=== PATIENT | female | born 1990 | race Caucasian/White ===

== ENCOUNTER → 2018-07-27 | Outpatient (CLI) | payer BC, MEDICAID ==
[~2018-07-27] MED LIST: ACHD5005 PO; DCS100C PO; IBP600T1 PO; PREN-115 PO
--- NOTE | 2018-07-27 10:24 | Diagnostic Imaging Report ---
PROCEDURE: US Hepatic (Liver). TECHNIQUE: Multiple Real-time grayscale images were obtained over the right upper quadrant in various projections. INDICATION: The liver is at the upper limits of normal in size at 18 cm. No discrete liver mass is identified. The portal vein is patent and shows normal direction of flow. The gallbladder is without stones or sludge. No wall thickening or biliary ductal dilatation is seen. The pancreas is obscured by bowel gas. The right kidney is unremarkable. There is no ascites. IMPRESSION: Upper limits of normal size liver without evidence of discrete mass or biliary ductal dilatation. There is no evidence of cholelithiasis or acute cholecystitis. Dictated by: Dictated on workstation # [id number]
== END ==
LOC: RAD 08:41
PROVIDERS: ATTEND Family Medicine
DX: R79.89 Other specified abnormal findings of blood chemistry (principal)
CPT/HCPCS: 76705

== ENCOUNTER → 2018-09-25 | Outpatient (CLI) | payer MEDICAID ==
--- NOTE | 2018-09-25 09:52 | Diagnostic Imaging Report ---
INDICATION: Elevated liver function test. Ultrasound of the liver and right upper quadrant was performed in routine fashion and compared to 07/27/2018. FINDINGS: The liver shows normal echogenicity with no focal lesions. Portal vein is patent with flow in the normal direction towards the liver. Gallbladder appears unremarkable with no stones or wall thickening. Common duct measured 3 mm. Pancreas is unremarkable to the extent seen. The right kidney was normal measuring 11.6 x 3.9 x 4.1 cm. There is no ascites. There is no free fluid. IMPRESSION: Negative ultrasound of right upper quadrant. No acute change compared to the prior study. Dictated by: Dictated on workstation # [id number]
== END ==
LOC: RAD 08:34
PROVIDERS: ATTEND Family Medicine
DX: R79.89 Other specified abnormal findings of blood chemistry (principal)
CPT/HCPCS: 76705

== ENCOUNTER → 2021-02-22 | Outpatient (CLI) | payer OTHER ==
--- NOTE | 2021-02-22 09:28 | Diagnostic Imaging Report ---
PROCEDURE: US Hepatic (Liver). TECHNIQUE: Multiple real-time grayscale images were obtained over the right upper quadrant in various projections. INDICATION: Elevated liver function tests and obesity. Liver is normal in size at 16.7 cm. No discrete liver mass is detected. The portal vein is patent and shows normal direction of flow. Gallbladder is without stones or sludge. There is no wall thickening or biliary duct dilatation. Pancreas is unremarkable. Aorta is nonaneurysmal. IVC is patent. The right kidney is without calculi or hydronephrosis. There is no ascites. IMPRESSION: Unremarkable right upper quadrant ultrasound. Dictated by: Dictated on workstation # [id number]
== END ==
LOC: RAD 08:15
PROVIDERS: ATTEND Family Medicine
DX: R79.89 Other specified abnormal findings of blood chemistry (principal); E66.9 Obesity, unspecified
CPT/HCPCS: 76705